=== PATIENT | female | born 1955 | race Caucasian/White ===

== ENCOUNTER 2019-05-10 02:12 | Outpatient (CLI) | payer OTHER, SELFPAY ==
--- NOTE | 2019-05-10 11:24 | DI.MAMMO_ITS ---
EXAM: MAMMO SCREENING CLINICAL HISTORY: screening TECHNIQUE: Mammograms were interpreted according to the usual protocol including computer analysis w [employer] CAD system, tomosynthesis and C-view imaging. COMPARISON: 2009 to 2018 FINDINGS: The breasts are composed of heterogeneously dense fibroglandular densities, Breast Density category C . No suspicious masses or suspicious microcalcifications are seen. No skin thickening or abnormal axillary lymph nodes are seen. There has been no significant change from prior exams. IMPRESSION: BIRADS Category 1, negative mammogram. Yearly screening mammography is recommended. BREAST DENSITY: The mammogram demonstrates the patient's breast tissue is dense. Dense breast tissue is very common and is not abnormal but dense breast tissue can make it harder to find cancer on a ma mmogram. Also, dense breast tissue may increase their breast cancer risk. This information about the result of the mammogram report was provided to the patient to raise their awareness. Use this report when you speak with the patient about their risks for breast cancer, which includes their family hist ory. At that time, you may recommend for more screening tests (Ultrasound or MRI) as they might be us eful based on their risk. A negative radiographic report should not delay biopsy if a dominant or clinically suspicious mass is present. Up to ten percent of cancers are not identified on mammography. A negative report may reinforce clinical impression. Adenosis and dense breasts may obscure an underlying neoplasm. False positive reports average 6 to 10%.
== END 2019-05-10 02:32 ==
PROVIDERS: PCP Nurse Practitioner Family; Visit Provider Nurse Practitioner Family
DX: Z12.31 Encounter for screening mammogram for malignant neoplasm of breast (principal)
CPT/HCPCS: 77063; 77067

== ENCOUNTER 2021-08-05 15:37 | Outpatient (REF) | payer MEDICARE, SELFPAY ==
--- NOTE | 2021-08-05 14:00 | PAPFT_PTH ---
PATIENT: Bela Jacobo LOC: [facility] U#:[id number] AGE/SX: 66/F ROOM: RE08/05/[address]: VAL Lee : 1955 BED: DIS: 08/05/2021 SPEC #: [id number] RECD: 08/05/21 17:59 STATUS: LUZ REWally #: [id number] ALBERTA: 08/05/21 14:[address]: Rohini Shook DEPT: [facility], [facility] Cytology RECD BY: Nicolle Carreno Tissues: 1 - CX/ENDOCX FOR PAP SMEARS Procedures: PAP THIN PREP/UVM Screening HPV DNA PROBE Comments: [id number]
== END 2021-08-05 15:38 | disposition home or self-care (01) ==
LOC: LBN 15:37
PROVIDERS: PCP Nurse Practitioner Family; Visit Provider Nurse Practitioner Family
DX: Z12.4 Encounter for screening for malignant neoplasm of cervix (principal); Z11.51 Encounter for screening for human papillomavirus (HPV)
CPT/HCPCS: 88142; 87624

== ENCOUNTER → 2021-10-01 03:18 | Outpatient (CLI) | payer MEDICARE, SELFPAY ==
--- NOTE | 2021-10-01 09:41 | DI.MAMMO_ITS ---
Exam(s) MAMMO SCREENING EXAM: MAMMO SCREENING CLINICAL HISTORY: screening TECHNIQUE: Mammograms were interpreted according to the usual protocol including computer analysis w [employer] CAD system, tomosynthesis and C-view imaging. COMPARISON: FINDINGS: The breasts are heterogeneously dense. No dominant mass or clumped microcalcification is identified in either breast. The current examination is compared with previous examinations including May 04 and there has been no gross interval change in appearance in comparison with the prior studies. IMPRESSION: No specific evidence of malignancy at this time. Routine screening examinations are suggested at yea rly intervals in this age group according to the ACS ACR guidelines. BI-RADS Category 1 - Negative Breast Density - Category C - Heterogeneously dense
== END ==
PROVIDERS: PCP Nurse Practitioner Family; Visit Provider Nurse Practitioner Family
DX: Z12.31 Encounter for screening mammogram for malignant neoplasm of breast (principal)
CPT/HCPCS: 77063; 77067

== ENCOUNTER 2022-01-29 08:43 | Outpatient (REF) | payer MEDICARE, SELFPAY ==
--- OUTSIDE RECORDS SUMMARY | 2022-01-29 08:47 | XMS_ITS | CCD ---
:1955 Author Care Team Providers Name Role Phone MARKIE TRUJILLO Attending Physician Unavailable Vital Signs Unknown or Not Available. Allergies Allergy Code Allergy Type Reaction Status No Known Drug Allergies 0 No known drug allergies Active Procedures Unknown or Not Available. History of Immunizations Unknown or Not Available. Problems Unknown or Not Available. Results [facility] COVID RHEONIX* - Collect Date/Benny e: 06/23/2021 10:45 Test Name Code Test Result Test Units Test Ref Range Tier- 83321-6 PRE-OP N/A SARS COV2 RNA: 64326-5 NEGATIVE N/A REFERENCE RAN GE: NEGAT Active Medications Unknown or Not Available. Medications Administered During Visit Unknown or Not Available. Encounters Encounter Diagnosis Diagnosis Code Start Date Encounter for preprocedural laboratory examination [id number] 06/23/2021 Social History Smoking Status Code Start Date End Date Never smoker [id number] Patient Decision Aids Unknown or Not Available. Discharge Instructions You were admitted to [facility] on 06/23/2021 06:36 with a principal diagnosis of Encounter for preprocedural laborator y examination You had the following tests done: COPLE [facility] COVID RHEONIX* You were discharged from [facility] on 06/23/2021 06:36 Should you have any questions prior to d ischarge, please contact a member of your healthcare team. If you have left the spital and have any questions, please contact your primary care physician. Chief Complaint and Reason For Visit Unknown or Not Available. Function Status Unknown or Not Available. Plan of Care Unknown or Not Available. Referral/Transition of Care Unknown or Not Available.
--- OUTSIDE RECORDS SUMMARY | 2022-01-29 08:47 | XMS_ITS | CCD ---
:1955 Author Care Team Providers Name Role Phone MARKIE TRUJILLO Attending Physician Unavailable MARKIE TRUJILLO Rounding (Secondary) Physician Unavailab le Vital Signs Unknown or Not Available. Allergies Allergy Code Allergy Type Reaction Status No Known Drug Allergies 0 No known drug allergies Active Procedures Unknown or Not Available. History of Immunizations Unknown or Not Available. Problems Unknown or Not Available. Results Unknown or Not Available. Active Medications Unknown or Not Available. Medications Administered During Visit Unknown or Not Available. Encounters Unknown or Not Available. Social History Smoking Status Code Start Date End Date Never smoker [id number] Patient Decision Aids Unknown or Not Available. Discharge Instructions You were admitted to [facility] on 02/03/2022 15:15 You were discharged from [facility] Should you have any questions prior to d ischarge, please contact a member of your healthcare team. [facility] and have any questions, please contact your primary care physician. Chief Complaint and Reason For Visit Unknown or Not Available. Function Status Unknown or Not Available. Plan of Care Unknown or Not Available. Referral/Transition of Care Unknown or Not Available.
--- OUTSIDE RECORDS SUMMARY | 2022-01-29 08:47 | XMS_ITS | CCD ---
:1955 Author Care Team Providers Name Role Phone DOMI PAIGE Attending Physician Unavailable DOMI PAIGE Rounding (Secondary) Physician Unavailab le Vital Signs [...] Encounters Encounter Diagnosis Diagnosis Code Start Date Idiopathic osteoarthritis [id number] 04/08/2021 Social History Smoking Status Code Start Date End Date Never smoker [id number] Patient Decision Aids Unknown or Not Available. Discharge Instructions You were admitted to [facility] on 04/08/2021 10:20 with a principal diagnosis of Unilateral primary osteoarthritis, ri ght knee You were discharged from [facility] on 04/08/2021 00:00 Should you have any questions prior to d ischarge, please contact a member of your healthcare team. If you have left the ho spital and have any questions, please contact your primary care physician. Chief Complaint and Reason For Visit Unknown or Not Available. Function Status Unknown or Not Available. Plan of Care Unknown or Not Available. Referral/Transition of Care Unknown or Not Available.
--- OUTSIDE RECORDS SUMMARY | 2022-01-29 08:47 | XMS_ITS | CCD ---
:1955 Author Care Team Providers Name Role Phone MARKIE TRUJILLO Attending Physician Unavailable Vital Signs Unknown or Not Available. Allergies Allergy Code Allergy Type Reaction Status No Known Drug Allergies 0 No known drug allergies Active Procedures Unknown or Not Available. History of Immunizations Unknown or Not Available. Problems Unknown or Not Available. Results C REACTIVE PROTEIN HIGH SENSITIVITY* - C ollect Date/Time: 05/15/2021 15:43 Test Name Code Test Result Test Units Test Ref Range CRP-HIGH SENS. 54961-4 0.24 mg/L L=0.00 H=3.00 CRP-HIGH SENS 74033-8 0.02 mg/dL L=0.00 H=0.30 SED RATE* - Collect Date/Time: 15:43 Test Name Code Test Result Test Units Test Ref Range SED. RATE 4537-7 <1 mm/hr L=0 H=30 Active Medications Unknown or Not Available. Medications Administered During Visit Unknown or Not Available. Encounters Encounter Diagnosis Diagnosis Code Start Date Pain in right knee [id number] 05/15/2021 Social History Smoking Status Code Start Date End Date Never smoker [id number] Patient Decision Aids Unknown or Not Available. Discharge Instructions You were admitted to [facility] on 05/15/2021 15:41 with a principal diagnosis of Pain in right knee You had the following tests done: C ILIA CTIVE PROTEIN HIGH SENSITIVITY* SED RATE* You were discharged from [facility] on 05/15/2021 15:41 Should you have any questions prior to [...]
--- OUTSIDE RECORDS SUMMARY | 2022-01-29 08:48 | XMS_ITS | Encounter Summary ---
:1955 Author Organization [facility] Address [address] [place] [address] Care Team Providers Name Role Phone Crys Cm MD Primary Care Provider Reason for Referral Radiology Services (Routine) - Closed Specialty Diagnoses / Procedures Referred By Contact Refer red To Contact Diagnoses Chronic bilateral low back pain, with sciatica presence unspecified Bilateral hip pain Pain in both thighs Bela Draper PA-C Procedures MR LUMBAR SPINE WO CONTRAST [address] [facility] [place] [address] Referral ID Status Reason Start Date Expiration Date Visits Requ ested Visits Authorized [id number] Closed 08/01/2018 1 1 Reason for Visit Reason Comments Follow-up Low back pain w/ Ismael Hip Encounter Details Date Type Department Care Team Description 08/01/2018 Office Visit [facility] Bela Draper Chr onic bilateral low back pain, with sciatica presence unspecified (Primary Dx); Spine Program - A, PA-C Bilateral hip pain; [address] Pain in both thighs [address] [facility] [place] [address] [place] [address] (Wo rk) Social History Tobacco Use Types Packs/Day Years Used Date Never Smoker Smokeless Tobacco: Never Used Tobacco Cessation: Counseling Given: No Alcohol Habits Answer Date Recorded How often do you have a drink containing alcohol? Not asked How many drinks containing alcohol do you have on a typical Not asked day when you are drinking? How often do you have six or more drinks on one occasion? No t asked Comment: 3/week 06/02/2017 Sex Assigned at Date Recorded Not on file documented as of this encounter Functional Status Functional Status Response Date of Assessment Because of a physical, mental, or emotional condition, Yes 08/17/2017 does this person have difficulty doing errands alone such as visiting a doctor's office or shopping? Cognitive Status Response Date of Assessment Because of a physical, mental, or emotional condition, Yes 08/17/2017 does this person have serious difficulty concentrating, remembering, or making decisions? documented as of this encounter Discharge Diagnoses Diagnosis M51.36 Other intervertebral disc degener ation, lumbar region-M51.36[ICD-10-CM] M43.16 Spondylolisthesis, lumbar region- M43.16[ICD-10-CM] M47.896 Other spondylosis, lumbar region -M47.896[ICD-10-CM] documented in this encounter Discharge Disposition Disposition Code Departure Means Destination Auto Discharge documented in this encounter Progress Notes Bonny Cifuentes, ISHAAN Cramer - 08/01/2018 1530 EDT Subjective: 63-year-old female here today for follow-up s/p lumbar facet injections on 08/17/2017 reporting minimal relief. I last saw her on 06/02/2017 with 80% bilateral LBP and 20% bilateral hip pain, R>L. Patient states over the last month, symptoms have been worsening including the development of anterior thigh pain and paresthesias, which is worse in the morning. She has been doing physical therapy, massage, chiropractics, NSAIDs, heat, ice as needed with minimal lasting relief. Pain today 4/10, worst is 8/10. Denies bowel bladder dysfunction. Endorses feeling a little clumsy on her feet, however no trips or falls. Patient is not dropping objects. She thinks her fine motor skills are okay. She states walking provides relief especially on even surfaces. Going downstairs can be difficult though. Back extension and also be painful. Since her last visit she underwent bilateral TKA with Dr. Henriquez on May 05, 2018. Patient states this is helped her knee pain and she has happy with the results. Objective: Gait: Normal. Patient can heel and toe walk without difficulty. Truncal flexion with fingertips to ankles. Truncal extension: 20 degrees. Pain elicited with extension. Strength: 5/5 with psoas, quads, hamstrings, TA, EHL, peroneals, gastrocnemius bilaterally. Sensation to light touch intact throughoutlower extremity's bilaterally. Patellar: 1+ in the right, absent on the left. Achilles: Absent bilaterally. Mikael's: Negative. Ankle clonus: Negative. No spine or paraspinal tenderness. Negative straight leg raise bilaterally. Hip range of motion: Full, fluid and painless with internal and externalrotation bilaterally. Kimberly's: 0/5. Imaging: Lumbar plain radiograph, AP/LAT/flex/ex, 08/01/2018: Degenerative scoliosis, convex to the right, apexat L2. Grade 1 anterolisthesis of L4 on L5 which increases slightly in flexion and reduces in extension. Progressed since prior films in 2018. Loss of disc height throughout lumbar spine, worse at L2-L3, L3- L4, L5-S1, consistent with degenerative disc disease. Facet arthropathy of the the lower lumbarspine. Assessment: 63-year-old female with LBP and bilateral leg symptoms likely secondary to spinal stenosis. Plain films demonstrate progression of mobile degenerative spondylolisthesis at L4-L5. I have ordered a lumbar MRI for further evaluation. We discussed multiple treatment options including physical therapy, TENS unit, medical management, injection therapy, surgical consultation. At this point, Bela would like to proceed with the plan below. Plan: 1. Continue physical therapy with progressive home exercise program PRN. 2. TENS unit. 3. NSAIDs, APAP, heat, ice as needed. 4. Lumbar MRI without contrast. Follow-up with me 1 week later to review results. 5. Based on results of lumbar MRI, consider bilateral hip radiographs, LEROY, versus surgical consult. 6. Activities as tolerated. Dr. Dickson was available for consultation, however consult was not required. All or part of this document has been prepared with speech recognition software and/or keyboard dataentry techniques. Minor irregularities may be present. I spent 30 minutes with 15 minutes of my time spent face to face with the patient discussing symptoms, subjective complaints and treatment options for the problem above. Kalani Alva - 08/01/2018 1530 EDT MRI safety questionnaire given to patient to fill out. Copy faxed to MRI, Original sent to scans. documented in this encounter Plan of Treatment Not on filedocumented as of this encounter Procedures Procedure Name Priority Date/Time Associated Diagnosis Comme nts MR LUMBAR SPINE WO Routine 09/05/2018 15:59 Chronic bilateral Results for this CONTRAST EDT low back pain, with procedur e are in sciatica presence the result s unspecified section. Bilateral hip pa in Pain in both thighs documented in this encounter Results MR LUMBAR SPINE WO CONTRAST (09/05/2018 15:59 EDT) Anatomical Region Laterality Modality Other Specimen Narrative [facility] - 09/05/2018 17:03 EDT MR LUMBAR SPINE WO CONTRAST ??09/05/2018 3:59 PM CLINICAL HISTORY: M54.5-Low back pain-ICD-10 G89.29-Other chronic pain-ICD-10; Low back pain with bilateral proximal thigh pain COMPARISON: Radiographs August 01, 2018 TECHNIQUE: MRI of the lumbar spine was performed wi thout intravenous contrast. Sagittal T1, T2, and STIR images as well as axial T1 and T2 images were obtained. FINDINGS: The conus terminates at T12. Signal with in the visualized portion of the cord and the cauda equina is normal. No mass lesions are identified. Vertebral body heights are m aintained. There is no suspicious bone marrow signal abnormalit y. A hemangioma is present in the L3 vertebral body. There is mild rightward curvature of the lumbar spine seen on the retail team member images which appears similar to th e prior radiographs. T11-T12: No significant spinal canal colton rowing. No foraminal stenosis. T12-L1: No significant spinal canal or n eural foraminal narrowing. L1-L2: With circumferential disc bulging . There is mild facet arthrosis. No significant spinal canal o r neural foraminal narrowing. L2-L3: Moderate to severe disc height lo ss with circumferential bulging of residual disc material. There is mild to moderate facet arthrosis. There is significant narrowin g of the left subarticular zone with questionable compression of th e descending left L2 nerve root. Otherwise, no significant spinal c anal narrowing is seen. There is mild bilateral foraminal stenos is. L3-L4: Mild circumferential disc bulging with a superimposed small central inferiorly migrated extrusion wi thout significant spinal canal narrowing. There is moderate facet arthrosis. Mild bilateral foraminal stenosis is seen. L4-L5: There is slight anterolisthesis o f L4 over L5 and mild circumferential disc bulging. There is s evere facet arthrosis. Mild bilateral foraminal narrowing is seen. T here is mild spinal canal stenosis. L5-S1: Severe disc height loss, possibly with a region of fusion across the right anterior aspect of the intervertebral disc space. No significant spinal canal narrowing. T here is mild left neural foraminal stenosis. Severe facet arthros is is present. Tarlov cysts are seen at the S2 level, m easuring up to 1.8 cm on the left. These are not typically felt to be of clinical significance. The included soft tissues show no suspic ious findings. IMPRESSION: Degenerative changes seen diffusely thro ugh the lumbar spine as described above. Questionable compression of the descendi ng left L2 nerve root in the left subarticular zone at L2-L3 secondar y to degenerative disc and facet changes. Severe facet arthrosis at L4-L5 and L5-S 1. Procedure Note Iggy Loo MD - 09/05/2018 MR LUMBAR SPINE WO CONTRAST 09/05/2018 3:5 9 PM CLINICAL HISTORY: M54.5-Low back pain-ICD-10 G89.29-Other chronic pain-ICD-10; Low back pain with bilateral proximal thigh pain COMPARISON: Radiographs August 01, 2018 TECHNIQUE: MRI of the lumbar spine was performed wi thout intravenous contrast. Sagittal T1, T2, and STIR images as well as axial T1 and T2 images were obtained. FINDINGS: The conus terminates at T12. Signal with in the visualized portion of the cord and the cauda equina is normal. No mass lesions are identified. Vertebral body heights are m aintained. There is no suspicious bone marrow signal abnormalit y. A hemangioma is present in the L3 vertebral body. There is mild rightward curvature of the lumbar spine seen on the retail team member images which appears similar to th e prior radiographs. T11-T12: No significant spinal canal colton rowing. No foraminal stenosis. T12-L1: No significant spinal canal or n eural foraminal narrowing. L1-L2: With circumferential disc bulging . There is mild facet arthrosis. No significant spinal canal o r neural foraminal narrowing. L2-L3: Moderate to severe disc height lo ss with circumferential bulging of residual disc material. There is mild to moderate facet arthrosis. There is significant narrowin g of the left subarticular zone with questionable compression of th e descending left L2 nerve root. Otherwise, no significant spinal c anal narrowing is seen. There is mild bilateral foraminal stenos is. L3-L4: Mild circumferential disc bulging with a superimposed small central inferiorly migrated extrusion wi thout significant spinal canal narrowing. There is moderate facet arthrosis. Mild bilateral foraminal stenosis is seen. L4-L5: There is slight anterolisthesis o f L4 over L5 and mild circumferential disc bulging. There is s evere facet arthrosis. Mild bilateral foraminal narrowing is seen. T here is mild spinal canal stenosis. L5-S1: Severe disc height loss, possibly with a region of fusion across the right anterior aspect of the intervertebral disc space. No significant spinal canal narrowing. T here is mild left neural foraminal stenosis. Severe facet arthros is is present. Tarlov cysts are seen at the S2 level, m easuring up to 1.8 cm on the left. These are not typically felt to be of clinical significance. The included soft tissues show no suspic ious findings. IMPRESSION: Degenerative changes seen diffusely thro ugh the lumbar spine as described above. Questionable compression of the descendi ng left L2 nerve root in the left subarticular zone at L2-L3 secondar y to degenerative disc and facet changes. Severe facet arthrosis at L4-L5 and L5-S 1. Performing Organization Address City/State/ZIP Code Phon e Number [facility] [place] documented in this encounter Visit Diagnoses Diagnosis Chronic bilateral low back pain, with sc iatica presence unspecified - Primary Bilateral hip pain Pain in joint, pelvic region and thigh Pain in both thighs documented in this encounter Care Teams Fashion Styling Intern Relationship Specialty Start Date End Date Crys Cm MD PCP - General 06/01/17 [address] [place] [id number] documented as of this encounter
--- OUTSIDE RECORDS SUMMARY | 2022-01-29 08:48 | XMS_ITS | Encounter Summary ---
:[address] [facility] Address [address] [place] [address] Care Team Providers Name Role Phone Crys Cm MD Primary Care Provider Encounter Details Date Type Department Care Team Description 09/05/2018 Hospital Encounter [facility] - Kaleigh Draper, Elsie BROWN [address] [facility] [address] [place], [place] [facility] [place] [address] [phone] [place] [address] (Wo rk) Social History Tobacco Use Types Packs/Day Years Used Date Never Smoker Smokeless Tobacco: Never Used Alcohol Habits Answer Date Recorded How often do you have a drink containing alcohol? Not asked How many drinks containing alcohol do you have on a typical Not asked day when you are drinking? How often do you have six or more drinks on one occasion? No t asked Comment: 3/06/02/2017 Sex Assigned at Date Recorded Not on [...] Other intervertebral disc degener ation, lumbar region-M51.36[ICD-10-CM] M51.26 Other intervertebral disc displac ement, lumbar region-M51.26[ICD-10-CM] M47.896 Other spondylosis, lumbar region -M47.896[ICD-10-CM] documented in this encounter Discharge Disposition Disposition Code Departure Means Destination Auto Discharge Home documented in this encounter Plan of Treatment Not on filedocumented as of this encounter Visit Diagnoses Not on filedocumented in this encounter Care Teams Marketing Services Coordinator Relationship Specialty Start Date End Date Crys Cm MD PCP - General 06/01/[address] [place] [address] documented as of this encounter
--- OUTSIDE RECORDS SUMMARY | 2022-01-29 08:48 | XMS_ITS | Encounter Summary ---
:1955 Author Organization [facility] Address [address] [place] [address] Care Team Providers Name Role Phone Crys Cm MD Primary Care Provider Encounter Details Date Type Department Care Team Description 10/18/2017 Audiology [facility] Nora Moreira AuD Sensorineural hearing Audiology - [employer] [facility] [address] [place], [place] [address] (Primary [facility] Dx) [address] [place] [address] [place], [place] [phone] Social History Tobacco Use Types Packs/Day Years [...] making decisions? documented as of this encounter Progress Notes Nora Anthony AuD - 10/18/2017 1400 EDT Adult Audiological Evaluation Name: Bela Jacobo Address: [address] [place] [id number] Date of : 1955 Primary Physician: Crys Cm Referring Physician: self referral ICD10/Diagnosis: Sensorineural Hearing Loss, bilateral Date of Service: 10/18/2017 Total Treatment Time: 45 minutes Name of Provider: Svetlana Becker SUBJECTIVE: I feel like it is a good time to have a baseline evaluation done. OBJECTIVE: History/Interview: Bela has been noticing gradual changes in her hearing over the last few years. She notices increased listening effort needed when she's in group settings and situations with background noise. Bela's children have mentioned that they think she has some hearing loss. Bela n otices herself pulling back a little bit in social situations if she's unable to hear what has been said. She has intermittent tinnitus in both ears which she describes as a light ringing or buzzing sound. It is not very bothersome. Bela has experienced vertigo in the past, though they have been short lasting episodes. There is no significant history of the following: ear infections, ear pain/pressure, noise exposure, or family history of hearing loss. Medical history is unremarkable. Otoscopic Evaluation: Left Ear: Clear canal, eardrum normal in appearance Right Ear: Clear canal, eardrum normal in appearance Audiometry: (See attached audiogram. In PRISM, see scans tab) Audiometric results were obtained today via: Pure [facility] Audiometry The following audiometric tests were performed: Air Conduction Bone Conduction Speech Manager Heavy Duty Threshold (SRT) Speech Recognition Behavioral Considerations: The patient was instructed in the test procedure. Responses were reliableand of good validity. Patient/Family/Associate Education: Patient education was provided regarding today's hearing evaluation results and interpretation, effects of high frequency hearing loss, communication strategies. Method of education: Verbal and Written Barriers to education: None The patient was able to verbalize understanding of the information ASSESSMENT: Audiological evaluation revealed hearing within normal limits through 3000Hz sloping to a mild to moderate high frequency sensorineural hearing loss in both ears. Word recognition scores are consideredexcellent in both ears. A speech in noise assessment was completed and Bela's average score fellwithin a normal category for xtjlyy-ttepj-labqv loss. Bela demonstrated good understanding of today's results. The results align with her suspicions of mild hearing loss, and help to explain some of her difficulty with speech clarity, especially in challenging situations. She is not considered a hearing aid candidate at this time. Monitoring of hearing is recommended and Bela is in agreement. PLAN: The patient will schedule a repeat audiological evaluation in 2 years, sooner per concern. Svetlana Becker 10/18/2017 14:53 CC: Crys Cm documented in this encounter Plan of Treatment Not on filedocumented as of this encounter Visit Diagnoses Diagnosis Sensorineural hearing loss, bilateral - Primary documented in this encounter Care Teams Roundhouse Worker Relationship Specialty Start Date End Date Crys Cm MD PCP - General 06/01/[address] [place] [address] documented as of this encounter
--- OUTSIDE RECORDS SUMMARY | 2022-01-29 08:48 | XMS_ITS | Encounter Summary ---
:1955 Author Organization [facility] Address [address] [place] [address] Care Team Providers Name Role Phone Crys Cm MD Primary Care Provider Reason for Visit Reason Onset Date Comments Update 07/06/2018 Encounter Details Date Type Department Care Team Description 07/06/2018 Telephone [facility] Spine Genet Draper, Update Program - [address] [place], [place] [address] [facility] [phone] [place] [address] (Wo rk) Social History Tobacco Use [...] on one occasion? No t asked Comment: /06/02/2017 Sex Assigned at Date Recorded Not on [...] making decisions? documented as of this encounter Miscellaneous Notes Telephone Encounter - Kalani Alva - 07/06/2018 1618 EST Patient called today to discuss some inconsistently in her office visit note from May 2017. Patient states that in her social history 1. Quit smoking 30 yrs- correction: never was smoker, was exposed to smokers 30 yrs ago. 2. Smoking status: former smoker. Checked history while on the phone with patient, tobacco history was updated August 2017 to correctlystate she was never a smoker. Patient satisfied with that response and seems agreeable at end of conversation. documented in this encounter Plan of Treatment Not on filedocumented as of this encounter Visit Diagnoses Not on filedocumented in this encounter Care Teams Cultural Historian Relationship Specialty Start Date End Date Crys Cm MD PCP - General 06/01/17 [address] [place] [address] documented as of this encounter
--- OUTSIDE RECORDS SUMMARY | 2022-01-29 08:48 | XMS_ITS | Encounter Summary ---
:1955 Author Organization [facility] Address [address] [place] [address] Care Team Providers Name Role Phone Crys Cm MD Primary Care Provider Reason for Visit Reason Comments Back Pain low back pain. Non radiating Referral (Routine/Next Available) - Specialty Report Received Specialty Diagnoses / Procedures Referred By Contact Refer red To Contact Pain Medicine Diagnoses Low back pain, unspecified back pain laterality, unspecified chronicity, with sciatica presence unspecified Bela Draper [facility] PA-C [address] [place], [place] Spine [address] [place], [place] Fax: [phone] Referral ID Status Reason Start Expiration Visits Visits Date Date Requested Authorized [id number] Specialty Specialty 06/02/2017 1 1 Report Services Received Required Encounter Details Date Type Department Care Team Description 08/17/2017 Office Visit [facility] - Farhad Price Lummartina r spondylosis [facility] III, DO (Primary Dx) [facility] [address] Interventional Pain [address] [phone] Social History Tobacco Use Types Packs/Day Years [...] on file documented as of this encounter Last Filed Vital Signs Vital Sign Reading Time Taken Comments Blood Pressure 124/83 08/17/2017 1345 EDT Pulse 81 08/17/2017 1345 EDT Temperature 36.6 ??C (97.9 ??F) 08/17/2017 1308 EDT Respiratory Rate 18 08/17/2017 1308 EDT Oxygen Saturation - - Inhaled Oxygen Concentration - - Weight 63.5 kg (140 lb) 08/17/2017 1308 EDT Height 172.1 cm (5' 7.75) 08/17/2017 1308 EDT Body Mass Index 21.44 08/17/2017 1308 EDT documented in this encounter Functional Status Functional Status Response [...] as of this encounter Discharge Diagnoses Diagnosis M47.816 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 The purpose of this procedure has been to place medication which may help relieve your pain. Steroid may be used to decrease the swelling and nerve irritation which may be causing your pain. The following information should help you over the next few days regarding what you may expect. ??? Please take it easy for the rest of today. ??? DO NOT drive a car for the remainder of the day. ??? If you feel sore where the needle(s) entered for the block or develop a flare-up of pain over the next few days, please use ice on the area. You may leave the ice on for up to 20 minutes at a time.Do not use heat, as this may cause swelling. ??? As long as your primary doctor has indicated no restrictions, you may take a mild pain medicine,such as acetaminophen (Tylenol), ibuprofen (Advil, Nuprin, Motrin IB, etc.) or aspirin, if needed. ??? The steroid injection usually takes a few days to become effective. On average, you may notice some relief in 3 -5 days. However, it may take up to 10 ??? 14 days to know whether the injection was helpful. ??? If the block causes numbness/weakness, it should wear off within a few hours. ??? If the area that the needle(s) were inserted becomes hot, red, swollen, or increasingly tender, or if you develop a fever (100.5 or greater) or chills along with these symptoms, please call our office immediately. ??? If you develop increasingly severe neck/back pain, continued numbness or weakness of the legs orchanges in your bladder or bowel functions, please call our office immediately. Instructions for follow-up \ Patient Education Topic: Method: Handout and Verbal Taught to: Patient Barriers: None Outcomes: independent and verbalized understanding Sari Manriquez RN If you have any questions about your block, please call Call Bela Draper in 3 weeks. documented in this encounter Discharge Disposition Disposition Code Departure Means Destination Auto Discharge documented in this encounter Progress Notes Farhad Price - 08/17/2017 1330 EDT PT NAME: Bela Jacobo : 1955 DOS: 08/17/2017 AUTO PARTS COUNTER PERSON: Farhad Price DO PHYSICAL THER: Tadeo House MD PROCEDURE: Facet injections; bilateral L4-L5 and L5-S1 DIAGNOSIS: 1. Lumbar spondylosis INTERVAL HISTORY: Bela Jacobo presents at the request of Bela QUIROS for facet injections to evaluate and treat chronic low back. 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 It occurs in the lumbosacral region and is described as severe pain that results in moderate to severe physical henriquez itations. Conservative treatments, including multiple analgesics and exercise therapy, have not beeneffective enough to provide pain relief or functional improvement. The referring provider recently performed a comprehensive evaluation of the patient's pain condition, and documented the pain onset, lo cation, course, workup, therapeutic attempts, and associated functional limitations in their clinic note. EXAM: Blood pressure 124/83, pulse 81, temperature 36.6 ??C (97.9 ??F), temperature source Tympanic, resp.rate 18, height 172.1 cm (67.75), weight 63.5 kg (140 lb). Gen: Awake, alert, cooperative, no apparent distress Skin: no rashes, bruises or petechiae noted Msk: gait steady, no antalgia no redness, warmth, or swelling of the joints SLT neg b/l L-spine: positive for paraspinal tenderness, b/l LS ext: painful LS flex: normal IMPRESSION: Ms. Jacobo is a 62 y.o. female with chronic low back pain. PLAN: Today we will perform facet injections which may be used for therapeutic effect but are not considered diagnostic per [facility]. If positive, RF ablation may be an option but will require 2 sets of double comparative medial branch blocks with positive results. PROCEDURE: The patient gave informed written consent to proceed with this procedure following a detailed discussion of the risks and benefits associated with lumbar facet joint injections. The patient was then placed in the prone position, the skin over the lumbosacral area was prepped with chlorhexadine, and the site was draped with sterile towels. Flouroscopy was used to align the lumbar the facet joints for parasagital approach. The skin and subcutaneous tissue over the facets were anesthetized with 2% lidocaine. A 22 guage 3.5 inch spinal needle was inserted under fluoroscopic guidance using coaxial technique into the aforementioned facet joints. After negative aspiration, each joint was injected with 1.0 mls 0.5% bupivicaine and 20 mg depo-methylprednisolone. There were no paresthesias and aspiration was negative at all times. The patient tolerated the procedure well, there were no apparent complications, and he was discharged in stable condition. Written and verbal discharge instructions were reviewed with the patient prior to discharge. Farhad Price DO 08/17/2017 TITCSari trinidad RN - 08/17/2017 1330 EDT [facility] Rooming Note Does patient have a Door Repairer Bus? yes Is patient NPO? (Solids since midnight & liquids for 4 hrs) n/a Blood Thinners: Is patient on Blood Thinners? no If yes, taking? If stopped, who authorized stopping? Related comments: Infections: Any recent infections, fever of illnesses? no If on antibiotics, is it 7-10 days past the date of completion of antibiotics? : (for females of child-bearing age) Is there a chance current ? Other: documented in this encounter Plan of Treatment Not on filedocumented as of this encounter Visit Diagnoses Diagnosis Lumbar spondylosis - Primary Lumbosacral spondylosis without myelopat hy documented in this encounter Administered Medications Inactive Administered Medications - up to 3 most recent administrations Medication Order MAR Action Action Date Dose Rate Site bupivacaine (PF) (MARCAINE) 0.5 % Given by Other 08/17/2017 13:31 EDT 20 mg (5 mg/mL) injection 20 mg 20 mg (4 mL), intra-articular, NOW X1, 1 dose, On Wed08/17/17 at 1400, Routine methylPREDNISolone ACETATE Given by Other 08/17/2017 13:31 EDT 80 mg (DEPO-MEDROL) injection 80 mg 80 mg, intra-articular, NOW X1, 1 dose, On Wed08/17/17 at 1400, Routine documented in this encounter Care Teams Aerospace Mechanic Relationship Specialty Start Date End Date Crys Cm MD PCP - General 06/01/[address] [place] [address] documented as of this encounter
--- OUTSIDE RECORDS SUMMARY | 2022-01-29 08:48 | XMS_ITS | CCD ---
:1955 Author Care Team Providers Name Role Phone DANIEL ZAYAS Attending Physician Unavailable DANIEL ZAYAS Rounding (Secondary) Physician Unavailab le Vital Signs [...] Encounters Encounter Diagnosis Diagnosis Code Start Date Removal of suture [id number] 07/07/2021 Social History Smoking Status Code Start Date End Date Never smoker [id number] Patient Decision Aids Unknown or Not Available. Discharge Instructions You were admitted to [facility] on 07/07/2021 11:23 with a principal diagnosis of Encounter for removal of sutures You were discharged from [facility] on 07/07/2021 00:00 Should you have any questions prior [...]
--- OUTSIDE RECORDS SUMMARY | 2022-01-29 08:48 | XMS_ITS | Clinical Summary ---
:1955 Author Organization [facility] Address [address] [place] [address] Care Team Providers Name Role Phone Crys Cm MD Primary Care Provider Allergies No known active allergies Medications No known medications Surgical History Surgery Date Site/Laterality Comments HAND SURGERY ANKLE SURGERY Medical History Medical History Date Comments Asthma Arthritis Family History Relation Name Status Comments Father Mother Alive Social History Tobacco Use Types Packs/Day Years [...] Assigned at Date Recorded Not on file Last Filed Vital Signs Vital Sign Reading [...] Body Mass Index 21.44 08/17/2017 1308 EDT Plan of Treatment Health Maintenance Due Date Last Done Comments Hepatitis C Screen 1955 COVID-19 Vaccine (1) 1961 Fall Risk Screening 2021 Implants Implanted Type Area Toe Puncher Device Shelf Model / Identifier Expiration Date Ser ial / Lot Right Knee Ortho Replacement-Mr Implant i Safe Description: MRI safe per hospital polic y ([facility] 07/21/2019) Left Knee Replacement-Mri Safe Ortho Implant Description: MRI safe per hospital polic y ([facility] 07/21/2019) Care Teams Commercial Collections Specialist Relationship Specialty Start Date End Date Crys Cm MD PCP - General 06/01/[address] [place] [address]
--- OUTSIDE RECORDS SUMMARY | 2022-01-29 08:48 | XMS_ITS | CCD ---
[...] Encounters Encounter Diagnosis Diagnosis Code Start Date Follow-up orthopedic assessment [id number] 08/05/19 22 Social History Smoking Status Code Start Date End Date Never smoker [id number] Patient Decision Aids Unknown or Not Available. Discharge Instructions You were admitted to [facility] on 08/04/2021 09:14 with a principal diagnosis of Encounter for other orthopedic afterc are You were discharged from [facility] on 08/04/2021 00:00 Should you have any questions prior [...]
--- OUTSIDE RECORDS SUMMARY | 2022-01-29 08:48 | XMS_ITS | Encounter Summary ---
:[address] [facility] Address [address] [place] [address] Care Team Providers Name Role Phone Crys Cm MD Primary Care Provider Encounter Details Date Type Department Care Team Description 02/24/2018 Results Only [facility]- Corby Kelly PA [phone] [place] [address] ,[address] [phone] (Wo rk) Social History Tobacco Use Types [...] making decisions? documented as of this encounter Plan of Treatment Not on filedocumented as of this encounter Procedures Procedure Name Priority Date/Time Associated Diagnosis Comme [facility] SURGICAL PATHOLOGY Routine 02/24/2018 21:14 Resul ts for this EDT procedure are i n the results section. documented in this encounter Results SURGICAL PATHOLOGY (02/24/2018 21:14 EDT) Pathology Report: SURGICAL PATHOLOGY REPORT [facility] Reports generated via electronic interface contain alona ginal data; LABORATORY however they are lacking the format of the original re port. SERVICES Caution should be taken when reading/interpreting unfo rmatted reports. Name: ? AILYN JACOBO ? Accession #: ? [id number] ? : ? 1955 (Age: 62 ) ??F ? Collect Date: ? 02/24/2018 ? Location: ? [facility] ? Receive Date: ? 018 ? Provider: CORBY QUIROS Copy to: ? Final Pathologic Diagnosis: SKIN OF BACK, LEFT MID UPPER, SHAVE BIOPSY; - Blue nevus. - Nevus present focally at deep tissue edge. Microscopic Description: Sections are of a low papule. ??The epid ermis is generally unremarkable. ??The junctional melanocytes are normal in number and morpho logy. ??Within the reticular dermis, there is a proliferation of spindle- shaped melanocytes including bipolar and dendritic forms. ??The lat ter have elongate cytoplasmic processes containing abundan t coarse melanin pigment. ??The nuclei are relatively uniform, elongate, and have tapered ends. ??The melanocytes are associated with thickened collagen bundles a nd clusters of melanophages. ??The proliferation is overall symmetric and wedge-shaped. ??(Dr. Whitten)/jhugo Document reviewed and electronically signed by: REJI WHITTEN MD Report ??Date: 02/25/2018 16:57 By the signature above, the attending physician certif ies that he/she has personally conducted a gross and/or microscopic examin ation of the described specimens and rendered or confirmed the above diagnosi s. Specimen(s) Received: Left mid upper back shave biopsy Clinical History: Irregular black papule; DDx: atypical nevus vs melanom a vs pigmented SK; excision if malignant; clinical diagnosis code: ??D48. 5 Gross Description: ? Received in formalin labelled with proper patient identification (initials R, J) and left mid-upper ba ck is a shave biopsy of light brown skin (0.8 x 0.6 x 0.1 cm). There is a centra l brown-black waxy papule that measures 0.4 x 0.3 x 0.1 cm. The margin is inked blue. The tissue is trisected and entirely submitted in 1. ISHAAN Yoder (ASCP) 02/25/2018 8:03 AM End of Report Specimen Performing Organization Address City/State/ZIP Code Phon e Number [facility] [address] [place] [address] SERVICES documented in this encounter Visit Diagnoses Not on filedocumented in this encounter Care Teams Pillar Man Relationship Specialty Start Date End Date Crys Cm MD PCP - General 06/01/17 [address] [place] [id number] documented as of this encounter
--- OUTSIDE RECORDS SUMMARY | 2022-01-29 08:48 | XMS_ITS | Encounter Summary ---
:1955 Author Organization [facility] Address [address] [place] [address] Care Team Providers Name Role Phone Crys Cm MD Primary Care Provider Encounter Details Date Type Department Care Team Description 08/06/2021 Lab Requisition [facility] Rohini Shook E ncounter for other Pathology & CHEMICAL RECLAMATION EQUIPMENT OPERATOR general examination Laboratory Medicine [address] [place], [place] [address] [facility] [phone] [place] [address] Social History Tobacco Use Types Packs/Day Years [...] encounter Procedures Procedure Name Priority Date/Time Associated Comments Diagnosis PAP TEST Today 08/05/2021 14:00 Encounter for other Resu lts for this EDT general examination procedur e are in the results section. HUMAN PAPILLOMAVIRUS Today 08/05/2021 14:00 Encounter for ot her Results for this (HPV) DETECTION-HIGH EDT general examination procedure are in RISK TYPES the results section. documented in this encounter Results HUMAN PAPILLOMAVIRUS (HPV) DETECTION-HIGH RISK TYPES (08/05/2021 14:00 EDT) Human Papillomavirus NegativeComment: No Negative [facility] (HPV) Detection-High E6 or E7 mRNA is CENTER LABORATOR Y Types detected from HPV SERVICES types 16,18,31,33,35,39,45 ,51,52,56,58,59,66, and 68 by multimedia services coordinator mediated amplification. Specimen Pap Test - Cervix and/or Endocervix Performing Organization Address City/State/ZIP Code Phon e Number [facility] [address] [place] [address] SERVICES PAP TEST (08/05/2021 14:00 EDT) Specimens A. Cervix and/or [facility] Endocervix , ThinPrep CENTER Imaging System with LABORATORY Manual Evaluation SERVICES Specimen Adequacy Satisfactory for Evaluation - assessment of transformation zone component not applicable ( e.g. atrophy, vaginal sample, hysterectomy) [facility] Scant squamous epithelial component, con tamination present, possibly lubricant CENTER LABORATORY SERVICES General Negative for [facility] Categorization intraepithelial CENTER lesion or malignancy LABORATORY SERVICES Attestation . [facility] Electronically CENTER signed by ERMIAS Helm CT(ASCP ) on SERVICES 08/12/2021 at 12 00 Clinical History See below [facility] SERVICES HPV The result for the Human Pap illomavirus (HPV) Detection-High Risk Types is Negative. No E6 or E7 mRNA is detected from HPV types 16,18,31,33,35,39,45,51,52,56,58,59,66, and 68 by multimedia services coordinator mediated [facility] amplification.Testing was pe rformed on specimen [id number] and was resulted on 08/12/2021 0716 EDT by MIRI, LAB INSTRUMENT RESULTS IN [facility] SERVICES Performing Lab [facility] SERVICES Scanned Images [facility] SERVICES Specimen Pap Test - Cervix and/or Endocervix Performing Organization Address City/State/ZIP Code Phon e Number [facility] [address] [place] [address] SERVICES documented in this encounter Visit Diagnoses Diagnosis Encounter for other general examination documented in this encounter Care Teams Well Servicing Rig Operator Relationship Specialty Start Date End Date Crys Cm MD PCP - General 06/01/[address] [place], [place] [address] documented as of this encounter
--- OUTSIDE RECORDS SUMMARY | 2022-01-29 08:48 | XMS_ITS | CCD ---
:1955 Author Care Team Providers Name Role Phone MARTIN ARIZMENDI Attending Physician Unavailable Vital Signs Vital Sign Value Unit Date/Time Recent/Initial? BP Systolic 120 mmHg 08/07/2021 13:05 Initial VS BP Diastolic 84 mmHg 08/07/2021 13:05 Initial VS Respiratory Rate 12 bpm 08/07/2021 13:05 Initial VS Heart Rate 63 bpm 08/07/2021 13:05 Initial VS O2 % BldC Oximetry 9 % 08/07/2021 13:05 Initi al VS Allergies Allergy Code Allergy Type Reaction Status No Known Drug Allergies 0 No known drug allergies Active Procedures Procedure Code Procedure Type Date Colsc Flx w/[place] [address] CPT 08/07/2021 Colonoscopy Flx w/Endoscopic Mucosal Resection 45069 C PT 08/07/2021 History of Immunizations Unknown or Not Available. Problems Unknown or Not Available. Results Unknown or Not Available. Active Medications Unknown or Not Available. Medications Administered During Visit Unknown or Not Available. 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 Discharge Instructions You were admitted to [facility] on 08/07/2021 10:16 with a principal diagnosis of Benign neoplasm of cecum You had the following procedures done: Colsc Flx w/Rmvl Of Tumor Polyp Lesion Snare Tq Colonoscopy Flx w/Endoscopic Mucosal Resection You were discharged from [facility] on 08/07/2021 13:47 Should you have any questions prior to [...]
--- OUTSIDE RECORDS SUMMARY | 2022-01-29 08:48 | XMS_ITS | Encounter Summary ---
:1955 Author Organization [facility] Address [address] [place] [address] Care Team Providers Name Role Phone Crys Cm MD Primary Care Provider Reason for Visit Reason Comments Follow-up Low back pain - MRI results Encounter Details Date Type Department Care Team Description 09/21/2018 Office Visit [facility] Bela Draper [facility] on bilateral low Spine Program - A, PA-C back pain with [address] bilateral sciatica [address] Spine [place] of (Primary Dx) [address] [phone] [place] [phone] (Wo rk) Social History Tobacco Use Types [...] documented as of this encounter Progress Notes Bela Quezada PA - 09/21/2018 1030 EDT Subjective: 63-year-old female s/p bilateral TKA (May 2018, [facility]) here today for lumbar MRI follow-up. I originally saw her on 06/02/2017 with 80% bilateral LBP and 20% bilateral hip and anterior thigh pain with paresthesias, R>L, worse in the morning. States she often feels like she is leaning to the right. Pain today 2/10, worst is 8/10. Patient notes that she has been traveling with her mother for the last 2 weeks therefore her morning routine of sitting in a hot tub and doing her HEP has been inconsistent and therefore thinks her symptoms have worsened a little bit because of this. In general, patientdenies decreased walking endurance, although does note some relief with sitting. She has done PT, massage, chiropractics, NSAIDs, heat and ice which provide some temporary relief. See prior note for full report. Objective: Imaging: Lumbar MRI without contrast, 09/05/2018: L2-L3: Left lateral recess stenosis, mild bilateral foraminalnarrowing. L3-L4: Small central disc extrusion, mild bilateral foraminal narrowing. L4-L5: Slight anterolisthesis of L4 over L5. Mild spinal canal stenosis. Severe facet arthrosis. Mild bilateral foraminal narrowing. L5-S1: Loss of disc height, possible fusion across the right anterior aspect of the intervertebral disc space. No significant spinal canal stenosis. Mild left foraminal narrowing. Severefacet arthrosis. Lumbar plain radiograph, AP/LAT/flex/ex, 08/01/2018: Degenerative scoliosis, convex to the right, apexat L2. Grade 1 anterolisthesis of L4 on L5 which increases slightly in flexion and reduces in extension. Progressed since prior films in 2018. Loss of disc height throughout lumbar spine, worse at L2-L3, L3- L4, L5-S1, consistent with degenerative disc disease. Facet arthropathy of the the lower lumbarspine. ?? Assessment: 63-year-old female with LBP and bilateral leg symptoms likely secondary to spinal stenosis. Lumbar MRI demonstrates mild stenosis at L4-5 and plain films demonstrate progression of mobile degenerative spondylolisthesis at L4-L5. ?? We discussed multiple treatment options including physical therapy, TENS unit, medical management, injection therapy, surgical consultation. At this point, Bela would like to proceed with conservative management and the plan below. ?? Plan: 1. Continue physical therapy with progressive home exercise program PRN. 2. TENS unit. 3. NSAIDs, APAP, heat, ice as needed. 4. Phone follow-up for LEROY at L5-S1. If minimal/no relief, consider surgical consult. 5. Activities as tolerated. ?? Dr. Lundy was available for consultation, however consult was not required. All or part of this document has been prepared with speech recognition software and/or keyboard dataentry techniques. Minor irregularities may be present. I spent 30 minutes with 15 minutes of my time spent face to face with the patient discussing symptoms, subjective complaints and treatment options for the problem above. ?? documented in this encounter Plan of Treatment Not on filedocumented as of this encounter Visit Diagnoses Diagnosis Chronic bilateral low back pain with salvatore ateral sciatica - Primary documented in this encounter Care Teams Bank Operations Officer Relationship Specialty Start Date End Date Crys Cm MD PCP - General 06/01/[address] [place] [address] documented as of this encounter
--- OUTSIDE RECORDS SUMMARY | 2022-01-29 08:48 | XMS_ITS | CCD ---
:1955 Author Care Team Providers Name Role Phone MARKIE TRUJILLO Attending Physician Unavailable Vital Signs Vital Sign Value Unit Date/Time Recent/Initial? BMI (Body Mass Index) 22.4 kg/m^2 06/20/2021 11:45 In itial VS Weight Measured 143 lbs 06/20/2021 11:45 Initial VS Height 67 in 06/20/2021 11:45 Initial VS BSA (Body Surface Area) 1.75 m^2 06/20/2021 11:45 Initial VS BP Systolic 106 mmHg 06/25/2021 14:39 Initial VS BP Diastolic 77 mmHg 06/25/2021 14:39 Initial VS Respiratory Rate 60 bpm 06/25/2021 14:39 Initial VS Heart Rate 58 bpm 06/25/2021 14:39 Initial VS O2 % BldC Oximetry 99 % 06/25/2021 14:39 Initi al VS Body Temperature 36.1 degrees 06/25/2021 14:39 Initial VS Allergies Allergy Code Allergy Type Reaction Status No Known Drug Allergies 0 No known drug allergies Active Procedures Procedure Code Procedure Type Date Arthrs Knee Surg w/Meniscectomy Med/Lat w/Shvg 24966 C PT 06/25/2021 Anesthesia, Open/Surg Arthroscopic Proc, Knee 69200 CP T 06/25/2021 Joint; NOS History of Immunizations Unknown or Not Available. Problems Unknown or Not Available. Results Unknown or Not Available. Active Medications Medications Administered During Visit Medication Dose Units Frequency Route Date/Time of L ast Dose MIDAZOLAM INJ SDV: 2MG/2ML 2 MG X1 IVP 06/25/2021 12:58 CeFAZolin IVPB FROZEN 2 GM X1 13:15 PREMIX: 2GM/100ML OxyCODONE TABLET no apap 5 MG PRN IN PACU PO 06/25/2021 15:34 added: 5mg ACETAMINOPHEN INJ SDV: 1000 MG PRN IN PACU X1 06/25/2021 14:25 1000MG/100ML Encounters Encounter Diagnosis Diagnosis Code Start Date Other tear of medial meniscus, current injury, right [id number] 06/25/2021 knee, initial encounter Social History Smoking Status Code Start Date End Date Never smoker [id number] Patient Decision Aids Unknown or Not Available. Discharge Instructions You were admitted to [facility] on 06/25/2021 09:31 with a principal diagnosis of Other tear of medial meniscus, curren t injury, right knee, initial encounter You had the following procedures done: Arthrs Knee Surg w/Meniscectomy Med/Lat w/Shvg Anesthesia, Open/Surg Arthroscopi c Proc, Knee Joint; NOS You were discharged from [facility] on 06/25/2021 16:40 Should you have any questions prior to d ischarge, please contact a member of your healthcare team. If you have left the ho spital and have any questions, please contact your primary care physician. Chief Complaint and Reason For Visit Chief Complaint Date of Onset RIGHT PARTIAL MEDIAL MENISCECTOMY 30MIN OP Function Status Unknown or Not Available. Plan of Care Unknown or Not Available. Referral/Transition of Care Unknown or Not Available.
--- OUTSIDE RECORDS SUMMARY | 2022-01-29 08:48 | XMS_ITS | Encounter Summary ---
:1955 Author Organization [facility] Address [address] [place] [address] Care Team Providers Name Role Phone Crys Cm MD Primary Care Provider Reason for Referral Radiology Services (Routine) - Closed Specialty Diagnoses / Procedures Referred By Contact Refer red To Contact Diagnoses Low back pain, unspecified back pain laterality, unspecified chronicity, with sciatica presence unspecified Bela Draper PA-C Procedures L SPINE 4 OR MORE VIEWS [address] [facility] [place] [address] Referral ID Status Reason Start Date Expiration Date Visits Requ ested Visits Authorized [id number] Closed 07/29/2018 1 1 Encounter Details Date Type Department Care Team Description 08/01/2018 Orders Only [facility] Bela Draper Low back pain, Spine Program - A, PA-C unspecified back pain [address] laterality, [address] [facility] [place] [facility] chronicity, with [address] [place], [place] sciatica presence [phone] unspecified (Primary [phone] (Wo rk) Dx) Social History Tobacco Use Types Packs/Day Years [...] Name Priority Date/Time Associated Diagnosis Comme nts L SPINE 4 OR MORE Routine 08/01/2018 15:08 Low back pain, Resu lts for this VIEWS EDT unspecified back procedure a re in pain laterality, the results unspecified section. chronicity, with sciatica presence unspecified documented in this encounter Results L SPINE 4 OR MORE VIEWS (08/01/2018 15:08 EDT) Anatomical Region Laterality Modality Other Specimen Narrative [facility] KAREN FREITAS - 08/03/2018 8:04 EDT L SPINE 4 OR MORE VIEWS ??08/01/2018 3:08 PM Clinical History: M54.5-Low back pain-ICD-10; Low back kimberly n Comparison: June 02, 2017 Technique: AP, lateral, flexion, and extension view s of the lumbar spine Findings: There is mild rightward curvature of the lumbar spine with a rightward rotational component. Severe d isc height loss seen in the left aspect of the L1-L2 and L2-L3 discs . There is moderate degenerative change elsewhere. Grade 1 a nterolisthesis is seen at L4 over L5. There is diffuse facet arthrosi s. Flexion and extension views show no significant change in alig nment. Suspect severe L5-S1 foraminal narrowing. No fracture or susp icious osseous lesion is identified. Moderate amount of stool see n in the colon. Lung bases are clear. Procedure Note Iggy Loo MD, MD - 08/03/2018 L SPINE 4 OR MORE VIEWS 08/01/2018 3:08 PM Clinical History: M54.5-Low back pain-ICD-10; Low back kimberly n Comparison: June 02, 2017 Technique: AP, lateral, flexion, and extension view s of the lumbar spine Findings: There is mild rightward curvature of the lumbar spine with a rightward rotational component. Severe d isc height loss seen in the left aspect of the L1-L2 and L2-L3 discs . There is moderate degenerative change elsewhere. Grade 1 a nterolisthesis is seen at L4 over L5. There is diffuse facet arthrosi s. Flexion and extension views show no significant change in alig nment. Suspect severe L5-S1 foraminal narrowing. No fracture or susp icious osseous lesion is identified. Moderate amount of stool see n in the colon. Lung bases are clear. Performing Organization Address City/State/ZIP Code Phon e Number [facility] [place] documented in this encounter Visit Diagnoses Diagnosis Low back pain, unspecified back pain lat erality, unspecified chronicity, with sciatica presence unspecified - Primary documented in this encounter Care Teams Spray Booth Operator Relationship Specialty Start Date End Date Crys Cm MD PCP - General 06/01/[address] [place] [address] documented as of this encounter
--- OUTSIDE RECORDS SUMMARY | 2022-01-29 08:48 | XMS_ITS | Encounter Summary ---
:1955 Author Organization [facility] Address [address] [place] [address] Care Team Providers Name Role Phone Crys Cm MD Primary Care Provider Reason for Visit Reason Onset Date Comments Appointment Related 08/05/2018 MRI and Follow up Encounter Details Date Type Department Care Team Description 08/05/2018 Telephone [facility] Bela Draper Flex ointment Related Spine Program - Prema Boyer PA-C (MRI and Follow up ) [address] [place], [place] Spine [place] [address] [phone] [place] [address] (Wo rk) Social History Tobacco [...] Notes Telephone Encounter - Kalani Alva - 08/05/2018 0851 EDT Called patient with time and date of MRI and Follow -up: MRI: 09/05/18 @ 425 pm Check-in @ 400 pm Location:[facility] [address] Gave [phone], if patient needs to reschedule. Follow-up 09/21/18 @ 1030 PM w/ [facility] @ [address] Gave [phone] option 4, if patient needs to reschedule. Verbalized understanding. Sent [employer] online e-mail as well. Kalani Alva 8:51 documented in this encounter Plan of Treatment Not on filedocumented as of this encounter Visit Diagnoses Not on filedocumented in this encounter Care Teams Gelatin Maker Utility Relationship Specialty Start Date End Date Crys Cm MD PCP - General 06/01/[address] [place] [address] documented as of this encounter
--- OUTSIDE RECORDS SUMMARY | 2022-01-29 08:48 | XMS_ITS | CCD ---
:1955 Author Care Team Providers Name Role Phone MARKIE TRUJILLO Attending Physician Unavailable Vital Signs Unknown or Not Available. Allergies Allergy Code Allergy Type Reaction Status No Known Drug Allergies 0 No known drug allergies Active Procedures Unknown or Not Available. History of Immunizations Unknown or Not Available. Problems Unknown or Not Available. Results [facility] COVID RHEONIX* - Collect Date/Benny e: 08/05/2021 10:39 Test Name Code Test Result Test Units Test Ref Range Tier- 70108-7 PRE-OP N/A SARS COV2 RNA: 35614-3 NEGATIVE N/A REFERENCE RAN GE: NEGAT Active Medications Unknown or Not Available. Medications Administered During Visit Unknown or Not Available. Encounters Encounter Diagnosis Diagnosis Code Start Date Pre-surgery testing [id number] 08/05/2021 Social History Smoking Status Code Start Date End Date Never smoker [id number] Patient Decision Aids Unknown or Not Available. Discharge Instructions You were admitted to [facility] on 08/05/2021 05:46 with a principal diagnosis of Encounter for preprocedural laborator y examination You had the following tests done: COPLE Y COVID RHEONIX* You were discharged from [facility] on 08/05/2021 05:46 Should you have any questions prior to [...]
--- OUTSIDE RECORDS SUMMARY | 2022-01-29 08:48 | XMS_ITS | Encounter Summary ---
:1955 Author Organization [facility] Address [address] [place] [address] Care Team Providers Name Role Phone Crys Cm MD Primary Care Provider Reason for Visit Reason Onset Date Comments Appointment Related 05/19/2021 fcp Encounter Details Date Type Department Care Team Description 05/19/2021 Telephone [facility] Fcp, Provider, Appoi ntment Related Hematology & Oncology - (fcp ) Main [employer] [address] [place] [address] Social History Tobacco Use Types Packs/Day Years [...] this encounter Miscellaneous Notes Telephone Encounter - Jud Cadena - 05/19/2021 1517 EST Called and LVMOM for patient regarding FCP referral. Left my direct number (1st attempt) documented in this encounter Plan of Treatment Not on filedocumented as of this encounter Visit Diagnoses Not on filedocumented in this encounter Care Teams Lead Developer Relationship Specialty Start Date End Date Crys Cm MD PCP - General 06/01/[address] [place] [address] documented as of this encounter
--- OUTSIDE RECORDS SUMMARY | 2022-01-29 08:49 | XMS_ITS | Encounter Summary ---
:1955 Author Organization [facility] Address [address] [place] [address] Care Team Providers Name Role Phone Brad Rose Dick DO Primary Care Provider Encounter Details Date Type Department Care Team Description 09/12/2015 Results Only [facility]- PRISM Rohini Shook, [facility] [phone] [facility] [place] [address] (Wo rk) Social History Tobacco Use Types Packs/Day Years Used Date Never Assessed Sex Assigned at Date Recorded Not on file documented as of this encounter Plan of Treatment Not on filedocumented as of this encounter Procedures Procedure Name Priority Date/Time Associated Diagnosis Comme nts PAP TEST- RESULT Routine 09/12/2015 0:00 EDT Resu lts for this ONLY procedure are i n the results section. documented in this encounter Results PAP TEST- RESULT ONLY (09/12/2015 0:00 EDT) Pathology Report: CYTOPATHOLOGY REPORT [facility] Reports generated via electronic interface contain alona ginal data; SERVICES however they are lacking the format of the original re port. Caution should be taken when reading/interpreting unfo rmatted reports. Name: ? AILYN JACOBO ? Accession #: ? [id number] : ? 1955 (Age: 60) ??F ?Collect Date: ? 09/11 Location: ? [facility] ? Receive Date : ? 09/13/2015 Provider: ?ROHINI TOMASZ DIRECTOR EHS Copy to: ? Specimen/Source: ? Pap Test, Cervix/Endocervix, ThinPrep Imaging System with manual evaluation Last Menstrual Period: ? 2011 ? SPECIMEN ADEQUACY ? Satisfactory for Evaluation - transformation zone component present GENERAL CATEGORIZATION ? Negative for Intraepithelial Lesion or Malignan cy INTERPRETATION ? Reactive cellular edith nges associated with inflammation present (includes repair). EDUCATIONAL NOTES/RECOMMENDATIONS ? An additional slide was prepared and evaluated. ? COMMENT ? The cell sample is markedly atrophic. ? Document reviewed and electronically signed by: ? SUNDAY THAKUR MD [facility] ? Report Date: ??09/26/2015 17:21 End of Report Specimen Performing Organization Address City/State/ZIP Code Phon e Number [facility] [address] [place] [address] SERVICES documented in this encounter Visit Diagnoses Not on filedocumented in this encounter Care Teams First Calender Worker Relationship Specialty Start Date End Date Brad Rose DO PCP - General 10/20/10 05/31/17 [address] [place] [address] documented as of this encounter
--- OUTSIDE RECORDS SUMMARY | 2022-01-29 08:49 | XMS_ITS | Encounter Summary ---
:1955 Author Organization [facility] Address [address] [place] [address] Care Team Providers Name Role Phone Crys Cm MD Primary Care Provider Reason for Referral Referral (Routine/Next Available) - Closed Specialty Diagnoses / Procedures Referred By Contact Refer red To Contact Pain Medicine Diagnoses Chronic bilateral low back pain, with sciatica presence unspecified Bela Draper, [facility] [address] [place], [place] [address]ey [address] [place], [place] Fax: [phone] Referral ID Status Reason Start Date Expiration Date Visits V isits Requested Authorized [id number] Closed Specialty 06/02/2017 1 0 Services Required Question Answer Reason for Request: BL facet injections at L4-L5 and L5-S1 Has the patient had 6 weeks of conservative Yes treatment such as physicial therapy or NSAIDS? Associated Notes: see prsim Reason for Visit Reason Comments Back Pain Hip Pain Encounter Details Date Type Department Care Team Description 06/02/2017 Office Visit [facility] Unknown, Frantz welch MD Chronic bilateral low Spine Program - Pamela Lundy MD [address] [facility] [place] [phone] back pain, with Bela Acosta PA-C [address] [facility] [place] [address] sciatica presence [address] unspecified (Primary [place], [place] Dx) [id number] Social History Tobacco Use Types Packs/Day Years Used Date Former Smoker Smokeless Tobacco: Never Used Comments: quit 30 years ago Alcohol Habits Answer Date Recorded How often [...] Sign Reading Time Taken Comments Blood Pressure - - Pulse - - Temperature - - Respiratory Rate - - Oxygen Saturation - - Inhaled Oxygen Concentration - - Weight 63.5 kg (140 lb) 06/02/2017 1324 EST Height 172.7 cm (5' 8) 06/02/2017 1324 EST Body Mass Index 21.29 06/02/2017 1324 EST documented in this encounter Functional Status Functional Status Response Date of Assessment Because of a physical, mental, or emotional condition, No 06/02/2017 does this person have difficulty doing errands alone such as visiting a doctor's office or shopping? Cognitive Status Response Date of Assessment Because of a physical, mental, or emotional condition, No 06/02/2017 does this person have serious difficulty concentrating, remembering, or making decisions? documented as of this encounter Discharge Diagnoses Diagnosis M54.9 Dorsalgia, unspecified-M54.9[ICD-1 0-CM] documented in this encounter Discharge Disposition Disposition Code Departure Means Destination Auto Discharge documented in this encounter Progress Notes Bela Draper PA - 06/02/2017 1300 EST Bela Jacobo is being seen as a consultation from Dr. Huber. Chief Complaint Patient presents with ??? Back Pain ??? Hip Pain The encounter diagnosis was Chronic bilateral low back pain, with sciatica presence unspecified. SUBJECTIVE: HPI Bela Jacobo is a 61 y.o. pleasant, physically active female who presents to the clinic today with 80% bilateral LBP and 20% bilateral hip pain, R>L for over 10 years. PMH significant for lumbar disc herniation roughly 10 years ago. She received injections in [place], [place] with good relief. She states her current pain feels very different than the radicular pain she felt before. Back pain is described as achy and sharp. Hip pain is achy. Endorses numbness and tingling on anterior thighs and some weakness in the legs. Denies leg cramping and decreased walking endurance. Does endorse decreased gripstrength, decreased finger dexterity and frequently drops objects. She does have numbness and tingling in her hands, which is relieved by shaking them. Denies bowel and bladder dysfunction. Pain is constant and worsening. Alleviating positions: Sitting and leaning forward. Aggravating positions: Back extension. Conservative treatment tried: PT: Remote history. Has not completed formal PT recently due to financial constraints. She does maintains a regular yoga practice at home, sits her hot tub daily. These practices provide significant relief of her back pain. Massage: Sporadically when she can afford it, provides some relief. Medications: Naproxen occasionally: With mild relief of symptoms. Injections: ESI10 years ago with significant relief. Social history: Quit smoking 30 years ago. 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 Lives at home by herself. There is no problem list on file for this patient. Past Medical History: Diagnosis Date ??? Asthma Past Surgical History: Procedure Laterality Date ??? ANKLE SURGERY ??? HAND SURGERY Social History Substance Use Topics ??? Smoking status: Former Smoker ??? Smokeless tobacco: Never Used Comment: quit 30 years ago ??? Alcohol use Not on file Comment: 3/week History reviewed. No pertinent family history. No current outpatient prescriptions on file. No current facility-administered medications for this visit. No Known Allergies Review of Systems Constitutional: Positive for activity change. Negative for unexpected weight change. Eyes: Positive for visual disturbance. Respiratory: Positive for shortness of breath. Cardiovascular: Negative for chest pain and palpitations. Gastrointestinal: Negative for constipation. Genitourinary: Negative for difficulty urinating. Musculoskeletal: Positive for back pain. Skin: Negative for rash. Neurological: Positive for weakness. Psychiatric/Behavioral: Negative for dysphoric mood. The patient is nervous/anxious. Physical Exam Constitutional: She is oriented to person, place, and time. She appears well- developed and well-nourished. Eyes: EOM are normal. Pulmonary/Chest: Effort normal. Musculoskeletal: She exhibits tenderness. Neurological: She is alert and oriented to person, place, and time. Skin: Skin is dry. Psychiatric: She has a normal mood and affect. Ortho Exam Neurologic Exam Mental Status Oriented to person, place, and time. Cranial Nerves CN III, IV, Extraocular motions are normal. OBJECTIVE: Gait: Normal. Patient is able to heel and toe walk with minor difficulty. Romberg: mild sway, dynamic: negative. Tandem gait: negative. Skin: No rashes or jay, caf?? au lait spots, masses. TTP at right SI joint. ROM: Truncal flexion with fingertips to toes and extension: 15??. Pain worse with extension. Strength: 5/5 with IP, quad, hamstrings, TA, EHL, peroneals, gastrocnemius bilaterally. Sensation tolight touch mildly diminished along left lateral thigh otherwise, intact throughout lower extremities bilaterally. Reflexes: Patellar: 2+ on the right, 1+ on the left. Achilles: 1+ bilaterally. Ankle clonus: Negative. Babinski: Down. Hoffmans: Negative. Dorsalis pedis: 2/2 bilaterally. SLR: Negative bilaterally. Kimberly's: 0/5. Hip range of motion: Full range, internal and external rotation on the right positive for mild pain in anterior groin. Camron's: Positive on the right for pain in SI joint. Positive on the left pain and lateral hip. Compression test: Negative. Log roll: Negative. OBJECTIVE DATA: Today 06/02/2017 I ordered plain radiographs and I independently reviewed the following: Lumbar Plain radiographs (AP/Lat/Flex/Ex): 06/02/2017 1. Five (5) non-rib bearing lumbar vertebrae. 2. There is a right convex curvature in lumbar spine with apex at L2-L3. 3. Disc height reduction worse at L2-L3 and L5-S1, consistent with degenerative disc disease. 4. Facet arthropathy of the lower lumbar spine. 5. SI joint normal. 6. No fractures or pars defects, or spondylolisthesis noted. ASSESSMENT: Bela Jacobo is a 61 y.o. female with predominantly axial back pain which is likely secondary to degenerative disc and facet disease. Bilateral hip pain may be referred pain from facets vs SI joint dysfunction. We discussed multiple forms of treatment including physical therapy, medical management, and injection therapy. At this point, Bela would like to start with physical therapy, because she has not done this yet and trial facet injections. She is not interested in medications. Some of her symptoms may be related to spinal stenosis and/or CTS or a degree of cervical myelopathy. Clinical history revealed proximal thigh weakness and upper extremity weakness with loss of dexterity, respectively. If these symptoms do not domenica, consider lumbar MRI, UE EMG or cervical MRI for further investigation. PLAN: We discussed the assessment, reviewed available options outlined above, and all of Bela Jacobo's questions have been answered today. She has agreed to the following plan: 1. Start PT and continue home exercise program. 2. Continue Massage, chiropractics p.r.n. 3. NSAIDS, heat/ice p.r.n. 4. Schedule bilateral facet injections at L4-L5 and L5-S1. Follow-up with me 3 weeks later. 5. If minimal/no relief, consider lumbar MRI, followed by [facility]. 6. If UE symptoms do not domenica, consider UE EMG or cervical MRI. 7. Activities as tolerated. Dr. Lundy was available for consultation, but was not consulted. All or part of this document has been prepared with speech recognition software, and/or keyboard database management system specialist techniques. Minor irregularities may be present. Other Orders Placed This Visit Procedures ??? Amb Pain Procedure documented in this encounter Plan of Treatment Scheduled Referrals Name Type Priority Associated Diagnoses Order S chedule AMB PAIN PROCEDURE Outpatient Referral Routine Chronic Bilater al Ordered: Low Back Pain, With 06/02/19 18 Sciatica Presence Unspecified documented as of this encounter Visit Diagnoses Diagnosis Chronic bilateral low back pain, with sc iatica presence unspecified - Primary documented in this encounter Care Teams Transport Corps Officer Relationship Specialty Start Date End Date Crys Cm MD PCP - General 06/01/[address] [place] [address] documented as of this encounter
--- OUTSIDE RECORDS SUMMARY | 2022-01-29 08:49 | XMS_ITS | Encounter Summary ---
:[address] [facility] Address [address] [place] [address] Care Team Providers Name Role Phone Unavailable Primary Care Provider Unavailable Encounter Details Date Type Department Care Team Description 09/23/2007 Results Only [facility] - Rohini Bragg od, FIELD TAX AUDITOR conversion [address] [place] [phone] (Wo rk) Social History Tobacco Use Types Packs/Day Years Used Date Never Assessed Sex Assigned at Date Recorded Not on file documented as of this encounter Plan of Treatment Not on filedocumented as of this encounter Procedures Procedure Name Priority Date/Time Associated Comments Diagnosis HPV DETECTION, HIGH Routine 09/23/2007 10:20 Resu lts for this RISK TYPES EDT procedure are i n the results section. CYTOPATHOLOGY Routine 09/23/2007 0:00 Results for this EDT procedure are i n the results section. documented in this encounter Results HUMAN PAPILLOMA VIRUS DNA TEST (09/23/2007 10:20 EDT) Specimen Description Cervix, ThinPrep [facility] vial Result Negative for HPV [facility] types 16, 18, 31, 33, 35, 39, 45, 51, 52, 56, 58, 59, and 68. Report Status Final [facility] [id number] Specimen Performing Organization Address City/State/ZIP Code Phon e Number [facility] [address] [place] [address] SERVICES [facility] [address] [place] [address] CYTOPATHOLOGY (09/23/2007 0:00 EDT) Pathology Report: CYTOPATHOLOGY REPORT [facility] Reports generated via electronic interface contain alona ginal data; however they are lacking the format of the original re port. Caution should be taken when reading/interpreting unfo rmatted reports. Name: ? AILYN JACOBO ? Accession #: ? [id number] : ? 1955 (Age: 52) ??F ?Collect Date: ? 09/01 Location: ? [facility] ? Receive Date : ? 09/23/2007 Provider: ?ROHINI TOLBERT FIELD TAX AUDITOR Copy to: ? Specimen/Source: ? ThinPrep Pap Test, Cervix/Endocervix, processed on [employer] ThinPrep Imaging System, with manual evaluation Last Menstrual Period: ? 09/14/07 Other: ? HPVDX - HPV testing requested regardless of diag nosis on current ThinPrep Pap test. ? SPECIMEN ADEQUACY ? Satisfactory for Evaluation - transformation zone component present GENERAL CATEGORIZATION ? Negative for Intraepithelial Lesion or Malignan cy ? Document reviewed and electronically signed by: ? NIKA Winter(ASCP)(IAC) ? Report Date: ??09/28/2007 17:10 End of Report Specimen Performing Organization Address City/State/ZIP Code Phon e Number [facility] [address] [place] [address] SERVICES [facility] [address] [place] [address] documented in this encounter Visit Diagnoses Not on filedocumented in this encounter
--- OUTSIDE RECORDS SUMMARY | 2022-01-29 08:49 | XMS_ITS | Encounter Summary ---
:1955 Author Organization [facility] Address [address] [place] [address] Care Team Providers Name Role Phone Unavailable Primary Care Provider Unavailable Encounter Details Date Type Department Care Team Description 02/07/1999 Hospital Encounter [facility] Cedric Rajput MD [address] [phone] Social History Tobacco Use Types Packs/Day Years Used Date Never Assessed Sex Assigned at Date Recorded Not on file documented as of this encounter Discharge Disposition Disposition Code Departure Means Destination Auto Discharge documented in this encounter Plan of Treatment Not on filedocumented as of this encounter Visit Diagnoses Not on filedocumented in this encounter
--- OUTSIDE RECORDS SUMMARY | 2022-01-29 08:49 | XMS_ITS | Encounter Summary ---
:1955 Author Organization [facility] Address [address] [place] [address] Care Team Providers Name Role Phone Unavailable Primary Care Provider Unavailable Encounter Details Date Type Department Care Team Description 10/16/2010 Results Only [facility] Rosalba Rincon MD Laboratory Services - [facility] [address] [place], [place] [id number] [place] [phone] Social History Tobacco Use Types Packs/Day Years Used Date Never Assessed Sex Assigned at Date Recorded Not on file documented as of this encounter Plan of Treatment Not on filedocumented as of this encounter Procedures Procedure Name Priority Date/Time Associated Diagnosis Comme nts PAP TEST- RESULT Routine 10/16/2010 0:00 EDT Resu lts for this ONLY procedure are i n the results section. SURGICAL PATHOLOGY Routine 10/16/2010 0:00 EDT Re sults for this procedure are i n the results section. documented in this encounter Results PAP TEST- RESULT ONLY (10/16/2010 0:00 EDT) Pathology Report: CYTOPATHOLOGY REPORT ? [facility] Reports generated via electr onic interface contain original data; ? however they are lacking the format of the original report. ? Caution should be taken when reading/interpreting unformatted reports. ? Name: ? AILYN JACOBO ? Accession #: ? [id number] ? : ? 1955 (Age: 55) ??F ?Collect Date: ? 10/16/2010 ? Location: ? [facility] ? Receive Date: ? 10/17/2010 ? Provider: ?ROSALBA READY MD ? Copy to: ? Specimen/Source: ? Pap Test, Cervix/Endocervix, ThinPrep Imaging System ? with manual evaluation ? Last Menstrual Period: ? Other: ? Additional clinical informat ion: Still menstrating 7- 8 months /yr, had cervical polyp removed today ? SPECIMEN ADEQUACY ? Satisfactory for Eval uation ? - transformation zone compon ent present ? GENERAL CATEGORIZATION ? Negative for Intraepi thelial Lesion or Malignancy ? Document reviewed and electr onically signed by: ? Dillon Stumler, CT( CP) ? Report Date: ??06/21/ 2011 14:48 ? End of Report ? Specimen Performing Organization Address [facility]/State/ZIP Code Phon e Number [facility] [address] [place] [address] SERVICES [facility] [address] [place] [address] SURGICAL PATHOLOGY (10/16/2010 0:00 EDT) Pathologist [facility] Pathology Report: SURGICAL PATHOLOGY REPORT ? [facility] Reports generated via [employer] interface contain original data; ? LAB however they are lacking the format of the original report. ? Caution should be taken when reading/interpreting unformatted reports. ? Name: ? AILYN JACOBO ? Accession #: ? [id number] ? : ? 1955 (Age: 55) ??F ? Collec t Date: ? 10/16/2010 ? Location: ? [facility] ? R eceive Date: ? 10/17/2010 ? Provider: ROSALBA READY MD ? Copy to: ? Final Pathologic Diagnosis: ? Cervix, polyp, biopsy : ? - Benign endocervical polyp. ? Document reviewed and electr onically signed by: ? LEDY SIMPSON MBCHB ? Report ??Date: 10/20/2010 11 :18 ? By the signature above, the attending physician certifies that he/she has ? personally conducted a gross and/or microscopic examination of the described ? specimens and rendered or co nfirmed the above diagnosis. ? Specimen(s) Received: ? Cvx polyp ? Clinical History: ? Cvx polyp ? Gross Description: ? Received in formalin labelled Ranz, Ailyn and cvx polyp are two ? zabala-pink polypoid structures measuring 0.3 x 0.2 x 0.1 cm and 0.6 x 0.3 x 0.2 ?? cm. ??The specimens are subm itted intact in one cassette. ??(VICTOR M Norton)/van ? End of Report ? Specimen Performing Organization Address City/State/ZIP Code Phon e Number [facility] [address] [place] [address] SERVICES [facility] [address] [place] [address] documented in this encounter Visit Diagnoses Not on filedocumented in this encounter
--- OUTSIDE RECORDS SUMMARY | 2022-01-29 08:49 | XMS_ITS | Encounter Summary ---
:1955 Author Organization Health system Address [address] [place] [address] Care Team Providers Name Role Phone Crys Cm MD Primary Care Provider Encounter Details Date Type Department Care Team Description 06/04/2017 Results Only [facility] Rohini Shook, [facility] [phone] [place] [address] [place] [address] (Wo rk) Social History Tobacco Use [...] Diagnosis Comme nts PAP TEST- RESULT Routine 06/04/2017 0:00 EST Resu lts for this ONLY procedure are i n the results section. documented in this encounter Results PAP TEST- RESULT ONLY (06/04/2017 0:00 EST) Pathology Report: CYTOPATHOLOGY REPORT [facility] Reports generated via electronic interface contain alona ginal data; SERVICES however they are lacking the format of the original re port. Caution should be taken when reading/interpreting unfo rmatted reports. Name: ? IALYN JACOBO ? Accession #: ? [id number] ? : ? 1955 (Age: 61 ) ??F ?Collect Date: ? 2017 ? Location: ? [facility] ? Receive Date: ? Provider: ROHINI SHOOK [facility] Copy to: ? Final Report SPECIMEN ADEQUACY ? Satisfactory for Evaluation - transformation zone component present - scant squamous epithelial component - contamination present, possibly lubricant GENERAL CATEGORIZATION ? Negative for Intraepithelial Lesion or Malignan cy ?? Last Menstrual Period: 2011 Specimen/Source: ??Pap Test, Cervix, ThinPrep Imaging System with manual evaluation Document reviewed and electronically signed by: ? NIKA Akbar(ASCP) ? Report ??Date: 06/14/2017 08:36 HPV with Pap Test ? Date Ordered: ? 06/14/2017 ? Status: ?? Signed Out ?Date Complete: ? 06/15/2017 ? By: ??Sy stem Interface ? Date Reported: ? 06/15/2017 ? Interpretation RESULT: Negative for HPV. No E6 or E7 mRNA is detected from HPV types 16,18,31,3 3,35, 39,45,51,52,56,58,59,66, and 68 by finishing range operator media holden amplification. Comments Document reviewed and electronically signed by: ? System Interface ? Report date: 06/15/2017 By the signature above, the attending physician certif ies that he/she has personally conducted a gross and/or microscopic examin ation of the described specimens and rendered or confirmed the above diagnosi s. End of Report Specimen Performing Organization Address City/State/ZIP Code Phon e Number [facility] [address] [place] [address] SERVICES documented in this encounter Visit Diagnoses Not on filedocumented in this encounter Care Teams Tobacco Baler Relationship Specialty Start Date End Date Crys Cm MD PCP - General 06/01/[address] [place], [place] [id number] documented as of this encounter
--- OUTSIDE RECORDS SUMMARY | 2022-01-29 08:49 | XMS_ITS | Encounter Summary ---
:1955 Author Organization [facility] Address [address] [place] [address] Care Team Providers Name Role Phone Crys Cm MD Primary Care Provider Reason for Referral Referral (Routine/Next Available) - Specialty Report Received Specialty Diagnoses / Procedures Referred By Contact Refer red To Contact Pain Medicine Diagnoses Low back pain, unspecified back pain laterality, unspecified chronicity, with sciatica presence unspecified Bela Draper [facility] STEPHANIE [address] [place] [address] [place], [place] Fax: [phone] Referral ID Status Reason Start Expiration Visits Visits Date Date Requested Authorized [id number] Specialty Specialty 06/02/2017 1 1 Report Services Received Required Question Answer Reason for Request: BL facet injections at L4-L5 and L5-S1 Has the patient had 6 weeks of conservative Yes treatment such as physicial therapy or NSAIDS? Associated Notes: see prism T/OT/ST (Routine) - New Request Specialty Diagnoses / Procedures Referred By Contact Refer red To Contact Diagnoses Low back pain, unspecified back pain laterality, unspecified chronicity, with sciatica presence unspecified Bela Draper PA-C [address] [place] [address] Referral ID Status Reason Start Expiration Visits Visits Date Date Requested Authorized [id number] New Request Specialty 06/02/2017 1 1 Services Required Question Answer Reason for Request: back pain Encounter Details Date Type Department Care Team Description 06/02/2017 Orders Only [facility] Bela Draper Low back pain, Spine Program - A, PA-Jodie unspecified back pain [address] laterality, [address] Spine [place] of unspecified So [facility] chronicity, with [address] [place], [place] sciatica presence [phone] unspecified (Primary [phone] (Wo rk) Dx) Social History Tobacco Use [...] as of this encounter Plan of Treatment Scheduled Referrals Name Type Priority Associated Diagnoses Order S chedule AMB CONS/FOLLOW UP Outpatient Referral Routine Low Back Pain, Ordered: PHYSICAL THERAPY Unspecified Back 018 Pain Laterality, Unspecified Chronicity, With Sciatica Presence Unspecified AMB PAIN PROCEDURE Outpatient Referral Routine Low Back Pain, Ordered: Unspecified Back 06/02/2017 Pain Laterality, Unspecified Chronicity, With Sciatica Presence Unspecified documented as of this encounter Visit Diagnoses Diagnosis Low back pain, unspecified back pain lat erality, unspecified chronicity, with sciatica presence unspecified - Primary documented in this encounter Care Teams Parachute Crown Sewer Relationship Specialty Start Date End Date Crys Cm MD PCP - General 06/01/[address] [place] [address] documented as of this encounter
[2022-01-29 15:40] LABS: Anion Gap 6.2 mmol/L (3-11); BUN 19 mg/dL (7-18); CO2 27.8 mmol/L (21.0-32.0); CREATININE 0.8 mg/dL (0.55-1.02); Calcium 9.2 mg/dL (8.5-10.1); Calculated LDL 75 mg/dL (<100); Chloride 106 mmol/L (98-107); Cholesterol 154 mg/dL (<200); Estimated GFR 81.72 (mL/min/1.73m2); Glucose 86 mg/dL (74-106); HDL Cholesterol 70 mg/dL (40-60); Potassium 4.2 mmol/L (3.5-5.1); Sodium 140 mmol/L (136-145); TSH 0.03 uIU/mL (0.36-3.74); Triglyceride 46 mg/dL (<150)
== END 2022-01-29 08:44 | disposition home or self-care (01) ==
LOC: NCHCN 08:43
PROVIDERS: PCP Nurse Practitioner Family; Visit Provider Registered Nurse
DX: Z00.00 Encounter for general adult medical examination without abnormal findings (principal); R94.6 Abnormal results of thyroid function studies; Z13.220 Encounter for screening for lipoid disorders
CPT/HCPCS: 80048; 80061; 84443

== ENCOUNTER 2022-02-17 16:02 | Outpatient (REF) | payer MEDICARE, SELFPAY ==
[2022-02-17 15:13] LABS: FREE T4 0.93 ng/dL (0.76-1.46); TSH 0.04 uIU/mL (0.36-3.74)
[2022-02-17 22:35] LABS: T3, Total 116 ng/dL (97-169)
== END 2022-02-17 16:03 | disposition home or self-care (01) ==
LOC: NCHCN 16:02
PROVIDERS: PCP Nurse Practitioner Family; Visit Provider Registered Nurse
DX: R94.6 Abnormal results of thyroid function studies (principal)
CPT/HCPCS: 84439; 84443; 84480

== ENCOUNTER 2022-03-16 15:18 | Outpatient (REF) | payer MEDICARE, SELFPAY ==
[2022-03-19 17:17] LABS: Thyrotropin Receptor Ab <1.10 IU/L
== END 2022-03-16 15:19 | disposition home or self-care (01) ==
LOC: NCHCN 15:18
PROVIDERS: PCP Nurse Practitioner Family; Visit Provider Registered Nurse
DX: E05.90 Thyrotoxicosis, unspecified without thyrotoxic crisis or storm (principal)
CPT/HCPCS: 84235

== ENCOUNTER 2023-07-01 15:40 | Outpatient (REF) | payer MEDICARE, SELFPAY ==
[2023-07-01 21:49] LABS: Anion Gap 10.2 mmol/L (3-11); BUN 17 mg/dL (7-18); CO2 26.8 mmol/L (21.0-32.0); Calcium 9.1 mg/dL (8.5-10.1); Chloride 106 mmol/L (98-107); Estimated GFR 62.13 (mL/min/1.73m2); Glucose 101 mg/dL (74-106); Potassium 4.4 mmol/L (3.5-5.1); Sodium 143 mmol/L (136-145); TSH (W/Ref FT4) 0.19 uIU/mL (0.36-3.74)
[2023-07-01 22:05] LABS: FREE T4 0.79 ng/dL (0.76-1.46)
== END 2023-07-01 15:41 | disposition home or self-care (01) ==
LOC: NCHCN 15:40
PROVIDERS: Referring Provider Family Medicine; Visit Provider Family Medicine
DX: E05.90 Thyrotoxicosis, unspecified without thyrotoxic crisis or storm (principal); R53.83 Other fatigue
CPT/HCPCS: 80048; 84439; 84443

== ENCOUNTER 2024-01-10 13:27 | Outpatient (REF) | payer MEDICARE, SELFPAY ==
[2024-01-10 15:30] LABS: TSH (W/Ref FT4) 0.17 uIU/mL (0.36-3.74)
[2024-01-10 16:18] LABS: FREE T4 0.83 ng/dL (0.76-1.46)
[2024-01-10 22:37] LABS: T3, Total 120 ng/dL (97-169)
== END 2024-01-10 13:28 | disposition home or self-care (01) ==
LOC: NCHCN 13:27
PROVIDERS: PCP Family Medicine; Visit Provider Family Medicine
DX: Z86.39 Personal history of other endocrine, nutritional and metabolic disease (principal); Z13.29 Encounter for screening for other suspected endocrine disorder
CPT/HCPCS: 84439; 84443; 84480

== ENCOUNTER 2024-10-16 13:42 | Outpatient (REF) | payer MEDICARE, SELFPAY ==
[2024-10-16 17:27] LABS: FREE T4 0.81 ng/dL (0.76-1.46)
[2024-10-16 22:44] LABS: T3, Total 140 ng/dL (97-169)
== END 2024-10-16 13:43 | disposition home or self-care (01) ==
LOC: NCHCN 13:42
PROVIDERS: PCP Family Medicine; Visit Provider Family Medicine
DX: E05.90 Thyrotoxicosis, unspecified without thyrotoxic crisis or storm (principal)
CPT/HCPCS: 84439; 84480

== ENCOUNTER → 2024-12-13 09:24 | Outpatient (BNVA) | payer MEDICARE, SELFPAY | PROVIDERS: PCP Family Medicine; Referring Provider Family Medicine; Visit Provider Physical Therapy Assistant | DX: Z12.11 Encounter for screening for malignant neoplasm of colon (principal) | CPT/HCPCS: S0285 ==

== ENCOUNTER 2024-12-21 08:18 | Day surgery (SDC) | payer MEDICARE, SELFPAY ==
[2024-12-21 08:43] VITALS: BP 128/89; PULSE 77; RESP 18; TEMP 36.6; O2SAT 100
[2024-12-21] MEDS: Lactated Ringers 1,000 ML 80 ML IV (09:19)
--- NOTE | 2024-12-21 09:21 | W.ANESPRE ---
General Info Date of Service Date Performed: 12/21/24 Height: 5 ft 7 in Weight: 62.1 kg Body Mass Index (BMI): 21.4 Surgical Procedure: Operation Date: 12/21/24 10:05 Proposed Procedure Side Surgeon p Colonoscopy Leonela Vo MD Meds Allergies and Home Medications Allergies Allergy/AdvReac Type Severity Reaction Status Date / Time No Known Allergies Allergy Verified 12/21/24 08:42 Home Medication ?Medication ?Instructions ?Recorded zolpidem 5 mg tablet 5 mg PO QHS 12/12/24 bisacodyl 5 mg tablet,delayed 5 mg PO ONCE #4 tabs 12/13/24 release (Dulcolax (bisacodyl)) polyethylene glycol 3350 17 17 g PO ONCE #238 grams 12/13/24 gram/dose oral powder Current Visit Medications: Current Medications Generic Name Dose Route Start Last Admin Trade Name Freq PRN Reason Stop Dose Admin Ringer's Solution 1,000 mls @ 80 mls/hr 12/21/24 06:00 12/21/24 09:19 IV 12/21/24 23:59 80 mls/hr INFUSION MARLENE Administration IV Miscellaneous Supplies 1 each 12/21/24 06:00 Iv Access IV 12/21/24 23:59 DIRECTED MARLENE Sodium Biphosphate/Sodium Phosphate 133 ml 12/21/24 06:00 Na Phosphate Enema-Adult 133 Ml Btl WA 12/21/24 23:59 DIRECTED PRN Sodium Chloride 0 ml 12/21/24 06:00 Normal Saline Flush 10 Ml Syr IV 12/21/24 23:59 PRN PRN Sodium Chloride 0 ml 12/21/24 06:00 Normal Saline 10 Ml Vial IJ 12/21/24 23:59 DIRECTED PRN Sterile Water 0 ml 12/21/24 06:00 Water,Injection,Sterile 10 Ml Vial IJ 12/21/24 23:59 DIRECTED PRN PFSH Active Problems Active Problems: Problem Status Onset Code Inflamed seborrheic keratosis Acute L82.0 Solar degeneration Acute L57.8 Melanocytic nevus Acute D22.9 Medical History Medical History Hyperplastic colon polyp (~08/07/21) Tubular adenoma (~08/07/21) Sessile serrated polyp of colon (~08/07/21) Pain in right hip Derangement of meniscus of right knee Family conflict Fatigue Dupuytren's disease of finger with contracture Mass of hand Idiopathic osteoarthritis Chronic GERD without esophagitis Disorder of tongue Exacerbation of intermittent asthma Adjustment disorder Major depression Subclinical hyperthyroidism Hemangioma Surgical History Surgical History History of partial knee replacement both knees History of colonoscopy with polypectomy (~08/07/21) jas Tonsillectomy Tobacco Smoking/Tobacco Use Status: Never Alcohol Alcohol Intake: current Alcohol intake frequency: a few times a month Alcohol type: beer Substance Use Substance use type: does not use Vital Signs and Lab Results Vital Signs Most Recent Vital Signs in EMR: Most Recent Vital Signs Temp Pulse Resp BP Pulse Ox 36.6 C 77 18 128/89 100 12/21/24 08:43 12/21/24 08:43 12/21/24 08:43 12/21/24 08:43 12/21/24 08:43 Anesthesia Assessment and Plan Anesthesia History Personal History: No History of Anesthesia Complications Family History: No Family History of Anesthesia Complications Exercise Tolerance Exercise Tolerance: Metabolic Equivalents>4 Cardiac & Pulmonary Exam Cardiac Exam: Normal S1/S2 Heart Sounds Pulmonary Exam: Clear Bilateral Breath Sounds Implantable Cardiac Device Does patient have a Pacemaker or an ICD?: No Airway Exam Known Difficult Airway: No Mallampati Class: 2 Mouth Opening: Normal (> 3cm) Thyromental Distance: Greater than 3 cm Neck Range of Motion: Full ROM Neck Circumference: Normal Teeth Condition: Normal Dentition ASA Classification ASA Score: ASA 2 Emergency Case?: No NPO Status NPO Status: NPO Clears >2 hours, Solids >8 hours Anesthesia Plan Resuscitation Status: Full Code Anesthesia Technique: General Anesthesia Airway Planned: Natural Airway Monitors Used: Standard Monitors Preoperative Comments:: 69 yo for colo. Sig PMHx: GERD (very rare), subclinical hyperthyroid, depression, never smoker, occ EtOH.
[2024-12-21 09:23] VITALS: BMI 21.4
--- NOTE | 2024-12-21 10:51 | W.PM.DSUDISC ---
Date of service: 12/21/24 Discharge Plan Disposition Patient Disposition: Home Condition: Stable Discharge Details Attending Provider: Leonela Vo Primary Care Provider: Crys Cm Recommendations for Follow Up Recommended tests to be ordered by follow up provider: Next colonoscopy due in 3 years Home Meds and New Rx's Prescriptions: Continued zolpidem 5 mg tablet 5 mg PO QHS Discontinued bisacodyl [Dulcolax (bisacodyl)] 5 mg tablet,delayed release (DR/EC) 5 mg PO ONCE Qty: 4 0RF Rx Instructions: Take per colonoscopy instructions provided by ordering providers office polyethylene glycol 3350 17 gram/dose powder 17 g PO ONCE Qty: 238 0RF Rx Instructions: Take per colonoscopy instructions provided by ordering providers office Discharge Instructions Additional Instructions: normal colonoscopy today. excellent prep. No polyps this time. No regrowth or new growth. Next colonoscopy due in 5 years. Activity:: Activity as Tolerated Diet:: As Tolerated Discharge Orders Discharge Orders: Discharge Order (Routine); Ordered 12/21/24 Ordered By: Leonela Vo DS: Diagnosis Discharge Diagnosis (1) Encounter for colonoscopy due to history of colonic polyp: Status: Acute
[2024-12-21 10:53] VITALS: BP 97/66; PULSE 70; RESP 12; TEMP 36.1; O2SAT 98
--- NOTE | 2024-12-21 10:55 | COLE_ITS ---
Date of service: 12/21/24 Time of Service: 10:55 Colonoscopy Report Pre-op diagnosis general: History of colon polyp Post-op diagnosis procedure note: same Procedure: Colonoscopy Surgeon: Leonela Vo Anesthesia Type: General:No Airway Estimated blood loss (mL): 0 Pathology: none sent Complications: None Disposition: same day Indications: previous polyps Prep: Miralax/Dulcolax (excellent) Procedure Description: Informed consent was obtained and the patient was taken to the procedure area. The patient was placed in left lateral decubitus position on the procedure tabl e. Timeout was performed. Anesthesia was induced. DIA was performed. A lubricated colonoscope was inserted through the anus and passed to the cecum. The cecum was identified by the ileocecal valve and the appendiceal orifice. The scope was then slowly withdrawn and the colonic and rectal mucosa examined. There are no colon or rectal mass lesions, polyps, AVMs. There is no inflammatory change. No diverticulosis was seen. The scope was retroflexed in the anorectal junction examined. Uncomplicated internal hemorrhoids present. Assessment and plan; Normal colonoscopy. Average risk patient. Next screening colonoscopy will be due in 5 years due to prior polyps.
--- NOTE | 2024-12-21 11:03 | W.ANESPOSTOP ---
Postoperative Evaluation Date, Time and Location Date Performed: 12/21/24 Time Performed: 11:03 Patient Location: Day Surgery Unit Vital Signs Most Recent Imported Vital Signs: Most Recent Vital Signs Temp Pulse Resp BP Pulse Ox 36.1 C L 70 12 97/66 L 98 12/21/24 10:53 12/21/24 10:53 12/21/24 10:53 12/21/24 10:53 12/21/24 10:53 Pain Score Most Recent Pain Score: Most Recent Pain Score Pain Level 0 12/21/24 10:53 Assessment Mental Status: Awake (Alert & Oriented to Patient Baseline) Airway and Respiratory Function: Patent airway with normal (patient baseline) respiratory exam Cardiovascular Function: Hemodynamically Stable Hydration Status: Adequately Hydrated Nausea & Vomiting: No Nausea or Vomiting Pain: Pt. Denies Any Pain Peripheral Nerve Block: Patient did not receive a nerve block
[2024-12-21 11:24] VITALS: BP 138/89; PULSE 68; RESP 14; TEMP 36; O2SAT 100
== END 2024-12-21 11:31 | disposition home or self-care (01) ==
PROVIDERS: PCP Family Medicine; Visit Provider Surgery
PROC: 0DJD8ZZ Inspection of Lower Intestinal Tract, Via Natural or Artificial Opening Endoscopic (ICD-10-PCS; CPT 45378; principal; 2024-12-21 10:00)
DX: Z12.11 Encounter for screening for malignant neoplasm of colon (principal); K21.9 Gastro-esophageal reflux disease without esophagitis; Z86.0100 Personal history of colon polyps, unspecified
CPT/HCPCS: G0105; 45378; J2704